=== PATIENT | female | born 1955 | race Caucasian/White ===

== ENCOUNTER 2018-03-17 16:50 | Emergency (ER) | payer BC ==
[2018-03-17] MEDS ORDERED: KETOROLAC 15 MG/1 ML SDV IVP ONE (17:29)
[2018-03-17 17:30] LABS: PLATELET COUNT 325 10^3/uL (150-400)
--- NOTE | 2018-03-17 17:31 | EDPHY ---
H & P Stated Complaint: Generalized abd cramping since noon after eating. No n/v/d or constipation Time Seen by Provider: 03/17/18 16:57 HPI/ROS: CHIEF COMPLAINT: Abdominal cramping HISTORY OF PRESENT ILLNESS: 62-year-old female s/p cholecystectomy presents with abdominal cramping. This morning when she woke up, her abdomen did not feel quite right and she felt like she might be constipated. She had a normal out minute later. After eating lunch, she developed severe abdominal cramping. The cramping is diffuse, without associated symptoms. Had a prior similar episode 1 week ago after eating a hamburger. REVIEW OF SYSTEMS: complete 10 point ROS negative except at noted in the HPI - Personal History Current Tetanus Diphtheria and Acellular Pertussis (TDAP): Yes - Medical/Surgical History Other PMH: choley. breast cancer w/L mastectomy - Social History Smoking Status: Never smoked Alcohol Use: Sober Additional Social History: - Physical Exam Exam: General Appearance: Alert, pleasant Eyes: Pupils equal and round, no conjunctival pallor ENT, Mouth: Mucous membranes moist Neck: Normal inspection Respiratory: Lungs are clear to auscultation Cardiovascular: Regular rate and rhythm Gastrointestinal: Abdomen is soft, mild diffuse tenderness Neurological: A&O, nonfocal, normal gait Skin: Warm and dry Extremities: Normal inspection Psychiatric: Mood and affect normal Constitutional: Initial Vital Signs Temperature (C) 36.8 C 03/17/18 16:52 Heart Rate 77 03/17/18 16:52 Respiratory Rate 16 03/17/18 16:52 Blood Pressure 146/105 H 03/17/18 16:52 O2 Sat (%) 96 03/17/18 16:52 O2 Delivery Mode Room Air Allergies/Adverse Reactions: Sulfa (Sulfonamide Antibiotics) Allergy (Intermediate, Verified 03/17/18 16:56) Hives Home Medications: Medication Instructions Recorded NK [No Known Home Meds] 03/17/18 Medical Decision Making - Diagnostics Imaging Results: Abdomen X-Ray 03/17/18 17:29 Impression: No acute findings. ED Course/Re-evaluation: This patient presents with generalized abdominal cramping. Abdominal exam is benign. Laboratory tests are unremarkable and he is unremarkable. Toradol 15 mg IV given. The patient needs to have severe abdominal cramping. Discussed with the patient and her . They would like to proceed with CT scan of the abdomen and pelvis to rule out any pathology. They understand this is a low yield and wished to proceed. CT scan of the abdomen pelvis is negative. The patient will be discharged home. Warning signs discussed. Follow up with PCP. Differential Diagnosis: Differential diagnosis includes though it is not limited to appendicitis, cholecystitis, diverticulitis, pyelonephritis, bowel perforation, small bowel obstruction. - Data Points Laboratory Results: Laboratory Results 03/17/18 17:10 03/17/18 17:10 Medications Given: Discontinued Medications Ketorolac Tromethamine (Toradol) 15 mg IVP EDNOW ONE Stop: 03/17/18 17:30 Last Admin: 03/17/18 17:35 Dose: 15 mg Departure - Departure Disposition: Home, Routine, Self-Care Clinical Impression: Abdominal pain Qualifiers: Abdominal location: generalized Qualified Code(s): R10.84 - Generalized abdominal pain Condition: Good Instructions: Acute Abdominal Pain (ED) Additional Instructions: Sometimes we are unable to diagnose an obvious cause of abdominal pain in the Emergency Department. Based upon our evaluation today, we see no obvious explanation for your pain. Because more serious conditions can be difficult to diagnose early in the course of their presentation, we ask that you return to the Emergency Department in 12-24 hours for a recheck if you are still having pain. This is necessary to exclude the development of a more serious condition such as appendicitis or other intra-abdominal emergency. In the event your pain markedly increases before that time or you develop intractable vomiting or fever return to the Emergency Department immediately. Referrals: Lorena Coughlin PA [Primary Care Provider] - 2-3 days, call for appt.
[2018-03-17] MEDS ORDERED: IOPAMIDOL (ISOVUE-300) 100 ML BTL ONE (18:06)
[2018-03-17 18:11] VITALS: BP 124/95
== END 2018-03-17 18:57 | disposition home or self-care (01) ==
DX: R10.84 Generalized abdominal pain (principal); Z85.3 Personal history of malignant neoplasm of breast; Z90.49 Acquired absence of other specified parts of digestive tract
CPT/HCPCS: 96374; J1885; Q9967

== ENCOUNTER 2018-04-22 17:12 | Emergency (ER) | payer BC ==
--- NOTE | 2018-04-22 17:55 | EDPHY ---
H & P Time Seen by Provider: 04/22/18 17:30 HPI/ROS: CHIEF COMPLAINT: Right ankle injury HISTORY OF PRESENT ILLNESS: Patient is a 62-year-old female presents emergency department after injuring her right ankle. The patient states [place] ankle now has significant pain in the lateral aspect. She is unable to bear any weight. No numbness or tingling. No previous ankle injury. She did not sustain other injury. REVIEW OF SYSTEMS: My complete review of systems is negative except as mentioned in the HPI. Past Medical/Surgical History: Breast cancer Past surgical history: Cholecystectomy, mastectomy Social history: Patient does not smoke Smoking Status: Never smoked Physical Exam: Vitals noted General Appearance: Alert and no distress. Head: Pupils equal. Normal. Respiratory: No respiratory distress. Cardiac: regular rate and rhythm. Extremities: Patient has significant swelling in her right ankle. Right lateral malleolus is swollen with tenderness to palpation. There is no foot tenderness palpation. No proximal tib-fib tenderness to palpation. Neurovascular intact distally.. Skin: No rashes or lesions. Neuro: Alert. Normal mood and affect. Constitutional: Initial Vital Signs Temperature (C) 36.8 C 04/22/18 17:15 Heart Rate 78 04/22/18 17:15 Respiratory Rate 16 04/22/18 17:15 Blood Pressure 132/94 H 04/22/18 17:15 O2 Sat (%) 96 04/22/18 17:15 O2 Delivery Mode Room Air Allergies/Adverse Reactions: Sulfa (Sulfonamide Antibiotics) Allergy (Intermediate, Verified 04/22/18 17:17) Hives Home Medications: Medication Instructions Recorded NK [No Known Home Meds] 03/17/18 Medical Decision Making - Diagnostics Imaging Results: Imaging Impressions Ankle X-Ray 04/22/18 17:19 Impression: Acute distal fibular fracture.. ED Course/Re-evaluation: In the emergency department I discussed possible etiologies with the patient. I answered all her questions. An x-ray was ordered. Right ankle x-ray: Please refer the dictated report. Distal fibular fracture. The patient was given a [place] boot and crutches. Neurovascular intact distally. I discussed the results with the patient. Patient was given warnings prior to leaving. She will follow up with Orthopedics. Differential Diagnosis: My differential includes but is not limited to fracture, dislocation, contusion , sprain, strain Departure - Departure Clinical Impression: Closed fibular fracture Qualifiers: Encounter type: initial encounter Fibula location: distal Fracture morphology: other fracture Laterality: right Qualified Code(s): S82.831A - Other fracture of upper and lower end of right fibula, initial encounter for closed fracture Condition: Good Instructions: Ankle Fracture (ED) Additional Instructions: You broke your distal fibula. Keep your Michael boot in place. Use your crutches as needed. Return with increasing pain, numbness or any other concerns. Referrals: Hansel Hamilton MD [Medical Doctor] - 5-7 days, call for appt.
[2018-04-22 18:52] VITALS: BP 135/84
== END 2018-04-22 18:50 | disposition home or self-care (01) ==
DX: S82.831A Other fracture of upper and lower end of right fibula, initial encounter for closed fracture (principal); Z85.3 Personal history of malignant neoplasm of breast; W19.XXXA Unspecified fall, initial encounter; Y99.8 Other external cause status
CPT/HCPCS: L4386